=== PATIENT | female | born 1990 | race Caucasian/White ===

== ENCOUNTER 2017-04-20 18:42 | Emergency (ER) | payer OTHER ==
[~2017-04-20] VITALS: Ht 160 cm; Wt 70.0 kg
[~2017-04-20 18:42] MED LIST: FAMO20TA18 PO; HYDR-3498 PO; IBUP-1542 PO; ONDA-43 PO
[2017-04-20 18:47] VITALS: Ht 160 cm; Wt 70.0 kg
--- NOTE | 2017-04-20 18:50 | ERD ---
ER Documentation Chief Complaint Chief Complaint lynda morales took 1/2 cup motor oil,sip of drano & 1 liquid bottle of sleep aid HPI The patient is a 27-year-old female, presenting to the ER because he has been very depressed. She denies suicidal ideation, visual or auditory hallucinations. She declined she took any motor oil, sip of Drano, sleep aid. She denies fever, chills, headache, neck pain, chest pain, abdominal pain, vomiting, dysuria, diarrhea. She has intermittent vaginal bleeding for the last 2 days. She does not smokes and drinks socially, also smoke marijuana, irregular menstrual., LMP was March 06, 2017, she is 2 para 0 2 Past medical history: Depression Past medical history: Right ankle ROS All systems reviewed and are negative except as per history of present illness. Medications Home Meds Active Scripts Hydrocodone Bit-Acetaminophen* ([place]*) 5-325 Mg Tab, 1 TAB PO Q6 Y for PAIN, # 20 TAB Prov:REYES STOCKTON NP 04/04/15 Ibuprofen* (Motrin*) 600 Mg Tab, 600 MG PO Q6H Y for PAIN AND OR ELEVATED TEMP, #30 Prov:REYES STOCKTON ASSOCIATE PROFESSOR OF BIOSTATISTICS 04/04/15 Reported Medications Ondansetron Hcl* (Zofran*) 4 Mg Tab, 4 MG PO Q4H Y for NAUSEA AND OR VOMITING, TAB 08/28/14 Hydrocodone Bit-Acetaminophen* ([place]*) 5-325 Mg Tab, 1 TAB PO Q4H Y for SEVERE PAIN LEVEL 7-10, TAB 08/28/14 Famotidine* (Famotidine*) 20 Mg Tablet, 20 MG PO DAILY, TAB 04/18/14 Allergies Allergies: Coded Allergies: No Known Allergy (Unverified , 05/15/15) PMhx/Soc History of Surgery: Yes (Ankle Sx; abortions, gallstone removal) Anesthesia Reaction: No Hx Neurological Disorder: No Hx Respiratory Disorders: No Hx Cardiac Disorders: No Hx Psychiatric Problems: No Hx Alcohol Use: Yes (socially) Hx Substance Use: Yes (medical marijuana) Hx Tobacco Use: Yes (socially) Physical Exam Vitals Vital Signs Date Time Temp Pulse Resp B/P Pulse Ox O2 Delivery O2 Flow Rate FiO2 04/20/17 18:52 98.2 85 18 124/73 99 04/20/17 18:47 98.6 117 18 126/77 94 Physical Exam Const: No acute distress. Head: Atraumatic. Eyes: Normal Conjunctiva. ENT: Normal External Ears, Nose and Mouth. Neck: Full range of motion. No meningismus. Resp: Clear to auscultation bilaterally. Cardio: Regular rate and rhythm. Abd: Soft, non distended, normal bowel sounds, non tender. Skin: No petechiae or rashes. Back: No midline or flank tenderness. Ext: No cyanosis, or edema. Neur: Awake and alert. No focal deficit Psych: Depressed Result Diagram: 04/20/17191904/20/171919 Results 24 hrs Laboratory Tests Test 04/20/17 19:00 04/20/17 19:20 Urine Color YELLOW Urine Clarity CLEAR Urine pH 7.0 Urine Specific [place] 1.006 Urine Ketones 1+mg/dL Urine Nitrite NEGATIVEmg/dL Urine Bilirubin NEGATIVEmg/dL Urine Urobilinogen 1+mg/dL Urine Leukocyte Esterase NEGATIVELeu/ul Urine Microscopic RBC 1/HPF Urine Microscopic WBC 3/HPF Urine Squamous Epithelial Cells FEW/HPF Urine Hemoglobin 3+mg/dL Urine Glucose NEGATIVEmg/dL Urine Total Protein NEGATIVEmg/dl Urine Opiates Screen Negative Urine Barbiturates Negative Urine Amphetamines Screen Negative Urine Benzodiazepines Screen Negative Urine Cocaine Screen Negative Urine Cannabinoids Positive White Blood Count 10.710^3/ul Red Blood Count 4.1110^6/ul Hemoglobin 12.3g/dl Hematocrit 36.3% Mean Corpuscular Volume 88.3fl Mean Corpuscular Hemoglobin 29.9pg Mean Corpuscular Hemoglobin Concent 33.9g/dl Red Cell Distribution Width 12.8% Platelet Count 37707^3/UL Mean Platelet Volume 11.1fl Neutrophils % 75.0% Lymphocytes % 15.9% Monocytes % 8.6% Eosinophils % 0.0% Basophils % 0.2% Nucleated Red Blood Cells % 0.0/100WBC Neutrophils # 8.110^3/ul Lymphocytes # 1.710^3/ul Monocytes # 0.910^3/ul Eosinophils # 0.010^3/ul Basophils # 0.010^3/ul Nucleated Red Blood Cells # 0.010^3/ul Prothrombin Time 15.4Sec Prothrombin Time Ratio 1.2 INR International Normalized Ratio 1.21 Activated Partial Thromboplast Time 26.8Sec Sodium Level 141mmol/L Potassium Level 3.0mmol/L Chloride Level 105mmol/L Carbon Dioxide Level 25mmol/L Anion Gap 14 Blood Urea Nitrogen 5mg/dl Creatinine 0.58mg/dl Glucose Level 108mg/dl Calcium Level 9.2mg/dl Total Bilirubin 1.2mg/dl Direct Bilirubin 0.00mg/dl Indirect Bilirubin 1.2mg/dl Aspartate Amino Transf (AST/SGOT) 156IU/L Alanine Aminotransferase (ALT/SGPT) 66IU/L Alkaline Phosphatase 79IU/L Total Protein 7.7g/dl Albumin 4.4g/dl Globulin 3.30g/dl Albumin/Globulin Ratio 1.33 Serum HCG, Qualitative NEGATIVE Salicylates Level < 1.0mg/dl Acetaminophen Level < 10.0ug/ml Ethyl Alcohol Level < 10.0mg/dl Procedures/MDM MEDICAL MAKING DECISION: The patient is a 27-year-old female, presenting with depression, acute hypokalemia. She was treated with potassium chloride 60 g p.o. for acute hypokalemia The differential diagnoses considered include but are not limited to depression , substance abuse, psychosis, drug-induced psychosis Departure Diagnosis: Primary Impression: Depression Additional Impressions: Hypokalemia Abnormal LFTs Marijuana abuse Condition: Serious Comments She was evaluated by telepsychiatrist Dr. stein who recommended 5150 hold NGOZI JOHNSON MD Apr 20, 2017 18:50
[2017-04-20 19:41] LABS: ADD UMIC YES; UR ASCORBIC ACID NEGATIVE (NEGATIVE); UR BILIRUBIN (Dip) NEGATIVE (NEGATIVE); UR BLOOD (Dip) 3+ mg/dL (NEGATIVE); UR CLARITY CLEAR (CLEAR); UR COLOR YELLOW (YELLOW); UR GLUCOSE (Dip) NEGATIVE (NEGATIVE); UR KETONES (Dip) 1+ mg/dL (NEGATIVE); UR LEUKOCYTE ESTERASE (Dip) NEGATIVE Leu/ul (NEGATIVE); UR NITRITE (Dip) NEGATIVE (NEGATIVE); UR RBC 1 /HPF (0-5); UR SPECIFIC GRAVITY (Dip) 1.006 (1.003-1.030); UR SQUAMOUS EPITHELIAL CELL FEW /HPF (FEW); UR TOTAL PROTEIN (Dip) NEGATIVE (NEGATIVE); UR UROBILINOGEN (Dip) 1+ mg/dL (NEGATIVE)
[2017-04-20 19:41] LABS: BASOPHILS % 0.2 % (0.0-2.0); HEMATOCRIT 36.3 % (37.0-47.0); HEMOGLOBIN 12.3 g/dl (12.0-16.0); LYMPHOCYTES # 1.7 10^3/ul (0.8-2.9); LYMPHOCYTES % 15.9 % (15.0-51.0); MEAN CORPUSCULAR HEMOGLOBIN 29.9 pg (29.0-33.0); MEAN CORPUSCULAR HGB CONC 33.9 g/dl (32.0-37.0); MEAN CORPUSCULAR VOLUME 88.3 fl (82.0-101.0); MEAN PLATELET VOLUME 11.1 fl (7.4-10.4); MONOCYTE # 0.9 10^3/ul (0.3-0.9); MONOCYTES % 8.6 % (0.0-11.0); NEUTROPHIL # 8.1 10^3/ul (1.6-7.5); PLATELET COUNT 230 10^3/UL (140-415); RED BLOOD COUNT 4.11 10^6/ul (4.20-5.40); RED CELL DISTRIBUTION WIDTH 12.8 % (11.5-14.5); WHITE BLOOD COUNT 10.7 10^3/ul (4.8-10.8)
[2017-04-20 19:57] LABS: INR 1.21; PROTIME 15.4 Sec (12.2-14.2); PT RATIO 1.2
[2017-04-20 19:58] LABS: BARBITURATES Negative (NEGATIVE); BENZODIAZEPINES Negative (NEGATIVE); CANNABINOIDS Positive (NEGATIVE); COCAINE Negative (NEGATIVE); OPIATES Negative (NEGATIVE)
[2017-04-20 19:58] LABS: ALANINE AMINOTRANSFERASE 66 IU/L (13-69); ALBUMIN 4.4 g/dl (3.3-4.9); ALBUMIN/GLOBULIN RATIO 1.33; ALKALINE PHOSPHATASE 79 IU/L (42-121); ANION GAP 14 (8-16); ASPARTATE AMINO TRANSFERASE 156 IU/L (15-46); BILIRUBIN,INDIRECT 1.2 mg/dl (0-1.1); BILIRUBIN,TOTAL 1.2 mg/dl (0.2-1.3); BLOOD UREA NITROGEN 5 mg/dl (7-20); CALCIUM 9.2 mg/dl (8.4-10.2); CARBON DIOXIDE 25 mmol/L (21-31); CHLORIDE 105 mmol/L (97-110); CREATININE 0.58 mg/dl (0.44-1.00); GLUCOSE 108 mg/dl (70-220); PARTIAL THROMBOPLASTIN TIME 26.8 Sec (25.0-35.0); SODIUM 141 mmol/L (135-144); TOTAL PROTEIN 7.7 g/dl (6.1-8.1)
[2017-04-20 20:00] LABS: ACETAMINOPHEN < 10.0 ug/ml (10.0-30.0); ETHANOL < 10.0 mg/dl; SALICYLATE < 1.0 mg/dl (5.0-30.0)
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
[2017-04-21] MEDS ORDERED: LORAZEPAM 1 MG TAB PO ONE (01:30)
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
[2017-04-21] MEDS ORDERED: ACETAMINOPHEN 325 MG TAB PO ONE (20:30)
[2017-04-21 20:55] VITALS: BP 126/80; PULSE 78; RESP 18; TEMP 98.7
== END 2017-04-21 20:55 | disposition short-term general hospital (02) ==
LOC: E/R 18:42
DX: F32.9 Major depressive disorder, single episode, unspecified (principal); E87.6 Hypokalemia; R94.5 Abnormal results of liver function studies; F12.10 Cannabis abuse, uncomplicated; R40.2142 Coma scale, eyes open, spontaneous, at arrival to emergency department; R40.2252 Coma scale, best verbal response, oriented, at arrival to emergency department; R40.2362 Coma scale, best motor response, obeys commands, at arrival to emergency department; R07.9 Chest pain, unspecified
CPT/HCPCS: 36415; 80053; 80306; 80307; 81001; 84703; 85025; 85610; 85730; Z7502; Z7610

== ENCOUNTER 2017-06-25 12:59 | Emergency (ER) | payer OTHER ==
[~2017-06-25] VITALS: Ht 170.2 cm; Wt 94.8 kg
[2017-06-25 13:07] VITALS: Ht 170.2 cm; Wt 94.8 kg
[2017-06-25] MEDS ORDERED: MED4DP PO (14:10)
[2017-06-25] MEDS ORDERED: NAPR-260 PO (14:10)
[2017-06-25] MEDS ORDERED: CYCL-319 PO (14:10)
[2017-06-25] MEDS ORDERED: HYDR-906 PO (14:10)
--- NOTE | 2017-06-25 14:29 | ERD ---
ER Documentation Chief Complaint Chief Complaint lower back pain pain radiates down legs x 2 months but worse past 1 week HPI 27-year-old female complaining of lower back pain that radiates down both legs. Patient states she has had this for the last month. States that she has never had this before. Patient does not know of any falls or traumatic incidences that developed and caused the leg pain. Patient denies any numbness or tingling down her extremities. Denies any changes in urination or bowel movement. Has normal control of her urination and bowel movement. Denies saddle anesthesia. Has not been taking medications for symptoms. Denies medical problems. NKDA. Surgical history is orthostatic on her ankle and cholecystectomy. Social history: Smokes 4 cigarettes a day. ROS All systems reviewed and are negative except as per history of present illness. Medications Home Meds Active Scripts Fluoxetine Hcl* (Fluoxetine Hcl*) 20 Mg Capsule, 20 MG PO DAILY, #30 CAP Prov:CIPRIANO ALTMAN PA-C 06/25/17 Methylprednisolone* (Medrol* DOSE PACK) 4 Mg/Dose-Pack Tab.ds.pk, 4 MG PO . DIRECTED, #1 PACKET Prov:CIPRIANO ALTMAN PA-C 06/25/17 Cyclobenzaprine Hcl* (Cyclobenzaprine Hcl*) 10 Mg Tablet, 10 MG PO TID, #15 TAB Prov:CIPRIANO ALTMAN PA-C 06/25/17 Naproxen* (Naprosyn*) 500 Mg Tablet, 500 MG PO BID Y for PAIN AND/OR INFLAMMATION, #30 TAB Prov:CIPRIANO ALTMAN PA-C 06/25/17 Hydrocodone/Acetaminophen ([place] 5-325 Tablet) 1 Each Tablet, 1 TAB PO Q6H Y for PAIN, #7 TAB Prov:CIPRIANO ALTMAN PA-C 06/25/17 Allergies Allergies: Coded Allergies: No Known Allergy (Unverified , 05/15/15) PMhx/Soc History of Surgery: Yes (Ankle Sx; abortions, gallstone removal) Anesthesia Reaction: No Hx Neurological Disorder: No Hx Respiratory Disorders: No Hx Cardiac Disorders: No Hx Psychiatric Problems: Yes (DEPRESSION) Hx Miscellaneous Medical Probl: Yes (Gallstones; throat pain) Hx Alcohol Use: Yes (socially) Hx Substance Use: Yes (medical marijuana) Hx Tobacco Use: Yes (socially) Smoking Status: Light tobacco smoker Physical Exam Vitals Vital Signs Date Time Temp Pulse Resp B/P Pulse Ox O2 Delivery O2 Flow Rate FiO2 06/25/17 13:07 99.0 98 18 116/59 98 Physical Exam GENERAL: The patient is well-appearing, well-nourished, in no acute distress CHEST: Clear to auscultation bilaterally. There are no rales, wheezes or rhonchi. HEART: Regular rate and rhythm. No murmurs, clicks, rubs or gallops. No S3 or S4. BACK: No midline or flank tenderness. TTP over left sciatic distribution. EXTREMITIES: Equal pulses bilaterally. There is no peripheral clubbing, cyanosis or edema. No focal swelling or erythema. Full range of motion. Grossly neurovascularly intact. NEUROLOGIC: Alert and oriented. Cranial nerves II through XII intact. Motor strength in all 4 extremities with 5 out of 5 strength. Sensation grossly intact. Normal speech and gait. Babinski negative. DTR 2+ throughout. Procedures/MDM MDM 27-year-old female complaining of back pain. I have low suspicion for acute fracture dislocation. Patient's pain has been chronic. Patient's pain is in the distribution of the sciatic nerve so is likely a sciatic inflammation. I have low suspicion for cauda equina. Patient does not have weakness to the extremities and there is no deficits appreciated on exam. I have low suspicion for discitis or epidural abscess. Patient does not have midline tenderness and vital signs are stable. Patient will be discharged with medications and recommended to follow-up with primary care within 1-2 days for close evaluation. Patient is told if symptoms change or worsen to return the ER. All questions answered discharge Departure Diagnosis: Primary Impression: Back pain Condition: Stable Patient Instructions: Back Pain W/ Sciatica Referrals: [facility] (PCP) Additional Instructions: FOLLOW UP WITH YOUR PRIMARY CARE PHYSICIAN TOMORROW.Return to this facility if you are not improving as expected. CIPRIANO ALTMAN PA-C Jun 25, 2017 14:29
[2017-06-25] MEDS ORDERED: FLUO20CA22 PO (14:30)
[2017-06-25] MEDS ORDERED: IBUPROFEN 800 MG TAB PO ONE (15:00)
== END 2017-06-25 14:50 | disposition home or self-care (01) ==
LOC: FTE 12:59
DX: M54.5 Low back pain (principal); F17.210 Nicotine dependence, cigarettes, uncomplicated
CPT/HCPCS: Z7502; Z7610; 99284

== ENCOUNTER 2017-12-20 14:23 | Emergency (ER) | END 2017-12-20 17:18 | disposition home or self-care (01) ==

== ENCOUNTER 2018-01-27 07:53 | Emergency (ER) | END 2018-01-27 10:55 | disposition home or self-care (01) ==